=== PATIENT | male | born 1980 | race Caucasian/White ===

== ENCOUNTER 2016-05-16 13:40 | Emergency (ER) | payer MEDICARE ==
[2016-05-16 14:19] LABS: BASO % 0.3 % (0.2-1.2); EOS # 0.2 10_X3_uL (0.0-0.5); EOS % 2.1 % (0.8-7.0); GRAN # 3.9 10_X3_uL (1.8-5.4); GRAN % 51.5 % (34.0-67.9); HEMATOCRIT 41.9 % (40-51); HEMOGLOBIN 14.4 g/dL (13.7-17.5); LYMPH # 2.9 10_X3_uL (1.3-3.6); LYMPH % 38.2 % (21.8-53.1); MEAN CORPUSCULAR HEMOGLOBIN 31.2 pg (27.0-33.0); MEAN CORPUSCULAR HGB CONC 34.4 g/dL (32.0-36.0); MEAN CORPUSCULAR VOLUME 90.7 fL (79-92); MEAN PLATELET VOLUME 10.7 fl (7.5-11.5); MONO # 0.6 10_X3_uL (0.3-0.8); MONO % 7.9 % (5.3-12.2); PLATELET COUNT 187 x10_3/uL (163-337); RED BLOOD COUNT 4.62 x10_6/uL (4.6-6.1); WHITE BLOOD COUNT 7.5 x10_3/uL (4.2-9.1)
== END 2016-05-16 15:11 | disposition home or self-care (01) ==
LOC: ER 13:40
PROVIDERS: General Practice
DX: J06.9 Acute upper respiratory infection, unspecified (principal); J32.9 Chronic sinusitis, unspecified; F11.20 Opioid dependence, uncomplicated; Z88.1 Allergy status to other antibiotic agents
CPT/HCPCS: 36415; 70486; 85025; 87070; 87400; 87880; 99283-25